=== PATIENT | male | born 1975 | race Caucasian/White ===

== ENCOUNTER 2018-03-06 20:25 | Emergency (ER) | payer SELFPAY ==
[~2018-03-06 20:25] MED LIST: Clindamycin 150 MG CAP ONE; Ibuprofen 600 MG TAB ONE
== END 2018-03-06 21:20 | disposition home or self-care (01) ==
LOC: MADERS 20:25
DX: K02.9 Dental caries, unspecified (principal); F17.210 Nicotine dependence, cigarettes, uncomplicated
CPT/HCPCS: 99282